=== PATIENT | male | born 1960 | race Native Hawaiian/Other Pacific Islander ===

== ENCOUNTER 2021-03-07 09:45 | Outpatient (CLI) | payer BC | END 2021-03-07 19:05 | disposition home or self-care (01) | LOC: MRI 09:45 | PROVIDERS: ATTEND Neurological Surgery | DX: M25.561 Pain in right knee (principal) ==

== ENCOUNTER 2021-03-21 14:04 | Outpatient (CLI) | payer BC | END 2021-03-21 20:17 | disposition home or self-care (01) | LOC: RAD 14:04 | PROVIDERS: ATTEND Neurological Surgery | DX: M25.561 Pain in right knee (principal) ==

== ENCOUNTER 2021-04-10 13:43 | Outpatient (CLI) | payer BC | END 2021-04-10 19:14 | disposition home or self-care (01) | LOC: MRI 13:43 | PROVIDERS: ATTEND Neurological Surgery | DX: M25.562 Pain in left knee (principal) ==

== ENCOUNTER 2022-11-23 15:15 | Outpatient (CLI) | payer BC | END 2022-11-23 19:04 | disposition home or self-care (01) | LOC: RAD 15:15 | PROVIDERS: ATTEND Physician Assistant | DX: M25.561 Pain in right knee (principal) ==